=== PATIENT | female | born 1980 | race Caucasian/White ===

== ENCOUNTER 2019-08-14 06:23 | Emergency (ER) | payer OTHER ==
[2019-08-14] MEDS ORDERED: Fentanyl 100 MCG/2 ML VIAL ONE (06:30)
[2019-08-14] MEDS ORDERED: Ondansetron PF 4 MG/2 ML Vial ONE ×2 (06:59→07:38)
[2019-08-14] MEDS ORDERED: Lorazepam 2 MG/ML VIAL ONE (07:38)
[2019-08-14] MEDS ORDERED: Ketamine 50 MG/ML (10ML VIAL) ONE (07:39)
[2019-08-14 08:05] LABS: #Basophils 0.1 thou/uL (0.0-0.2); #Eosinphils 0.1 thou/uL (0.0-0.7); #Lymphocytes 1.4 thou/uL (1.20-3.40); #Monocytes 1.3 thou/uL (0.11-0.59); #Neutrophils 9.8 thou/uL (1.40-6.50); %Basophils 0.8 % (0.0-1.0); %Lymphocytes 11.2 % (21.0-51.0); %Monocytes 10.1 % (0.0-10.0); %Neutrophils 76.9 % (42.0-75.0); Hemoglobin 9.2 g/dL (12.0-16.0); Mean Corpuscular HGB CONC 31.9 g/dL (32.0-36.0); Mean Corpuscular Hemoglobin 25.6 pg (27.0-31.0); Mean Corpuscular Volume 80.2 fL (78.0-98.0); Mean Platelet Volume 6.9 fL (7.4-10.4); Platelet Count 567 thou/uL (130-400); RBC Distribution Width 17.1 % (11.5-14.5); Red Blood Cell (RBC) Count 3.61 mill/uL (4.20-5.40); White Blood Cell (WBC) Count 12.7 thou/uL (4.8-10.8)
[2019-08-14 08:28] LABS: ALT (SGPT) 46 U/L (8-55); AST (SGOT) 25 U/L (5-34); Albumin 3.7 g/dL (3.5-5.0); Alkaline Phosphatase 194 U/L (40-110); Anion Gap 15 mmol/L (10-20); BUN (Urea Nitrogen) 9 mg/dL (7.0-18.7); Bilirubin, Total 0.4 mg/dL (0.2-1.2); Calc. Creatinine Clearance 0 mL/min (70-130); Calcium 8.8 mg/dL (7.8-10.44); Carbon Dioxide 23 mmol/L (22-29); Chloride 103 mmol/L (98-107); Estimated GFR-MDRD Greater than 90; Globulin 2.7 g/dL (2.4-3.5); Glucose 100 mg/dL (70-105); Potassium 4.2 mmol/L (3.5-5.1); Protein, Total 6.4 g/dL (6.0-8.3); Sodium 137 mmol/L (136-145)
--- NOTE | 2019-08-14 08:28 | RAD ---
Right lower leg 2 views HISTORY: Right leg pain. FINDINGS: Extensive internal fixation of the tibia and fibula again demonstrated. Minimal distraction and posterior displacement of the distal tibial fracture is unchanged in alignment from the postoperative images 08/08/2019. No new injury is visible. Overlying fiberglass splint and extrinsic artifact present. Small amount of intracapsular gas remains inferior to the patella on the lateral view. IMPRESSION : Stable radiographic appearance of right lower leg internal fixation. No acute osseous abnormalities o therwise demonstrated.
--- NOTE | 2019-08-14 16:36 | CON ---
DATE OF CONSULTATION: 08/14/2019 REQUESTING PHYSICIAN: Mehdi Bishop MD CONSULTING PHYSICIAN: Jose Orta MD REASON FOR CONSULTATION: Intractable pain. BRIEF CLINICAL HISTORY: Martha is a 38-year-old white female, who recently underwent open reduction and internal fixation and tibial nail of right distal tibia/fibular fracture. She is now approximately 67 days postop from her surgery and she has had many bounce back to the hospital for intractable pain and pain control issues. Dr. Willett has seen the patient in the past and placed a block. This did not last long and I am not sure why. I get differing stories from both the physician and the patient. She called the clinic on many occasions and she received some Vicodin yesterday, but again she appeared in the emergency room and I believe her intent is to be admitted. She has tried multiple regimens of medicines to include tramadol, codeine, and hydrocodone. Peripheral blocks have also been tried for pain establishment. PHYSICAL EXAMINATION: Right leg has been exposed. Her splints have been loosened. Her pain is under better control right now. Incision is clean. There is no erythema. No strike through and I see no purulence. She is neurovascularly intact. She has exquisite sensitivity to touch. Skin turgor is normal. Little bit of circumferential swelling is noted at the fracture site, but otherwise does not appear to be a compartment syndrome, she is appropriately swollen. IMAGING STUDIES: No change in hardware is noted. IMPRESSION: I suspect this might be an early onset of chronic regional pain syndrome, early in nature and difficult to assess due to the acuity, because she has acute swelling and other reasons for pain. Nonetheless, I recommend initiation of Lyrica as well as gabapentin up to therapeutic levels some control. At this point, I will defer to the Trauma Team for admission or maybe transfer to inpatient rehabilitation. The patient has failed outpatient management. Job ID: [id number]
== END 2019-08-14 13:25 ==
LOC: MERGE 06:23 → ERS 06:23
DX: G89.18 Other acute postprocedural pain (principal); M79.661 Pain in right lower leg
CPT/HCPCS: 36415; 80053; 85025; 85652; 86140; 96361; 96374; 96375; J2060; J2405; J3010